=== PATIENT | female | born 1960 | race Two or more races ===

== ENCOUNTER 2018-03-04 15:47 | Emergency (ER) | payer OTHER ==
[~2018-03-04] VITALS: Ht 175.3 cm; Wt 91.8 kg
[2018-03-04] MEDS ORDERED: IBUPROFEN 800MG TABLET PO ONE (20:15)
[2018-03-04 21:25] VITALS: BP 170/95
== END 2018-03-04 21:25 | disposition home or self-care (01) ==
LOC: ER 15:47
DX: M17.11 Unilateral primary osteoarthritis, right knee (principal); R51 Headache; I10 Essential (primary) hypertension; Z90.710 Acquired absence of both cervix and uterus
CPT/HCPCS: 73562; 99284